=== PATIENT | female | born 1935 | race Caucasian/White ===

== ENCOUNTER 2022-01-09 10:38 | Inpatient (IN) | payer MEDICARE, OTHER ==
[2022-01-09 11:27] LABS: Hemoglobin 12.1 g/dL (12.0-15.5); Mean Corpuscular Hemoglobin 30.3 pg (27.0-33.0); RBC Distribution Width 14.6 % (11.5-14.5); White Blood Cell (WBC) Count 11.5 10x3/uL (3.5-10.5)
[2022-01-09 11:28] LABS: #Monocytes 1.5 10x3/uL (0.0-1.1); #Neutrophils 8.9 10x3/uL (1.5-8.4); %Basophils 0.3 % (0.0-2.0); %Eosinophils 0.1 % (0.0-6.0); %Lymphocytes 9.2 % (18.0-47.0); Mean Platelet Volume 10.9 fl (7.4-10.4); Platelet Count 198 10x3/uL (150-450)
[2022-01-09 11:51] LABS: ALT (SGPT) 11 U/L (8-55); AST (SGOT) 21 U/L (5-34); Albumin 3.4 g/dL (3.4-4.8); Alkaline Phosphatase 43 U/L (40-110); Anion Gap 13 mmol/L (10-20); BUN (Urea Nitrogen) 12 mg/dL (9.8-20.1); Bilirubin, Total 0.8 mg/dL (0.2-1.2); Calc. Creatinine Clearance 0 mL/min (70-130); Calcium 7.8 mg/dL (7.8-10.44); Carbon Dioxide 24 mmol/L (23-31); Chloride 96 mmol/L (98-107); Estimated GFR 92; Globulin 2.6 g/dL (2.4-3.5); Glucose 119 mg/dL (83-110); Lipase 9 U/L (8-78); Magnesium 1.9 mg/dL (1.6-2.6); Potassium 3.9 mmol/L (3.5-5.1); Sodium 129 mmol/L (136-145)
[2022-01-09 11:56] LABS: SARS-CoV-2 NAA Rapid Test Not Detected (NotDetected)
[2022-01-09] MEDS ORDERED: cefTRIAXone\\ROCEPHIN 2 GM VIAL ONE (12:25)
[2022-01-09 13:33] LABS: Bilirubin Neg (Negative); Blood, Urine 50 (Negative); Glucose, Urine (Dipstick) Normal (Negative); Ketone, Urine 50 mg/dL (Negative); Leukocyte Negative (Negative); Nitrite Negative (Negative); Protein, Urine (Dipstick) 30 mg/dl (Neg-Trace)
[2022-01-09 13:36] LABS: Clarity Clear (Clear)
[2022-01-09 13:45] LABS: Bacteria/HPF None Seen HPF (None Seen); RBC/HPF 0-3 HPF (0-3); Squamous Epithelial 0-3 HPF (0-3); WBC/HPF 0-3 HPF (0-3)
[2022-01-09] MEDS ORDERED: HYDROcodone/Acetaminophen 5/325 mg Tablet PO PRN (13:47)
[2022-01-09] MEDS ORDERED: Ondansetron PF 4 MG/2 ML Vial IVP PRN (13:47)
[2022-01-09] MEDS ORDERED: Azithromycin 500 MG VIAL ONE (13:51)
[2022-01-09 14:42] LABS: Troponin I 0.027 ng/mL (< 0.028)
[2022-01-09 17:34] LABS: Troponin I 0.028 ng/mL (< 0.028)
[2022-01-09] MEDS: NS 0.9% w/ 20 MEQ KCL 1,000 ML/1,000 ML BAG IV SCH (20:30)
[2022-01-09] MEDS: Famotidine 20 MG TAB PO SCH (20:34)
[2022-01-09] MEDS: guaiFENesin ER 600 MG TAB PO SCH (20:34)
[2022-01-09 21:25] VITALS: BMI 19.6
[2022-01-10] MEDS: Acetaminophen 325 MG TAB PO PRN (00:51)
[2022-01-10] MEDS: NS 0.9% w/ 20 MEQ KCL 1,000 ML/1,000 ML BAG IV SCH ×2 (03:04→10:23)
[2022-01-10 04:10] LABS: #Eosinphils 0.1 10x3/uL (0.0-0.5); #Monocytes 1.1 10x3/uL (0.0-1.1); #Neutrophils 6.3 10x3/uL (1.5-8.4); %Basophils 0.5 % (0.0-2.0); %Eosinophils 0.8 % (0.0-6.0); %Lymphocytes 10.5 % (18.0-47.0); %Monocytes 12.9 % (0.0-10.0); %Neutrophils 74.9 % (40.0-75.0); Hemoglobin 11.1 g/dL (12.0-15.5); Mean Corpuscular HGB CONC 34.2 g/dL (32.0-36.0); Mean Corpuscular Hemoglobin 30.2 pg (27.0-33.0); Mean Corpuscular Volume 88.6 fl (81.6-98.3); Mean Platelet Volume 11.1 fl (7.4-10.4); Platelet Count 168 10x3/uL (150-450); RBC Distribution Width 14.5 % (11.5-14.5); Red Blood Cell (RBC) Count 3.67 10x6/uL (3.90-5.03); White Blood Cell (WBC) Count 8.5 10x3/uL (3.5-10.5)
[2022-01-10 04:24] LABS: Anion Gap 11 mmol/L (10-20); BUN (Urea Nitrogen) 9 mg/dL (9.8-20.1); Calc. Creatinine Clearance 69 mL/min (70-130); Calcium 7.7 mg/dL (7.8-10.44); Carbon Dioxide 23 mmol/L (23-31); Chloride 101 mmol/L (98-107); Estimated GFR 92; Glucose 111 mg/dL (83-110); Magnesium 1.9 mg/dL (1.6-2.6); Potassium 3.9 mmol/L (3.5-5.1); Sodium 131 mmol/L (136-145)
[2022-01-10] MEDS: Famotidine 20 MG TAB PO SCH ×2 (09:45→21:03)
[2022-01-10] MEDS: guaiFENesin ER 600 MG TAB PO SCH ×2 (09:45→21:03)
[2022-01-10] MEDS ORDERED: Potassium Chloride 20 MEQ TAB PO SCH (12:30)
[2022-01-10] MEDS: cefTRIAXone\\ROCEPHIN 1 GM in Sodium Chloride 0.9% 100 ML IVPB SCH (13:17)
[2022-01-10] MEDS: Mexiletine HCl 150 MG CAP PO SCH ×2 (15:42→21:03)
[2022-01-10] MEDS: Calcium Carbonate 500 MG ChewTAB PO PRN (15:42)
[2022-01-10] MEDS: Azithromycin 500 MG in Sodium Chloride 0.9% 250 ML 250 ML IVPB SCH (15:43)
[2022-01-11 04:42] LABS: #Eosinphils 0.1 10x3/uL (0.0-0.5); #Monocytes 0.8 10x3/uL (0.0-1.1); #Neutrophils 6.5 10x3/uL (1.5-8.4); %Basophils 0.4 % (0.0-2.0); %Lymphocytes 9.6 % (18.0-47.0); %Neutrophils 77.8 % (40.0-75.0); Hemoglobin 12.1 g/dL (12.0-15.5); Mean Corpuscular Hemoglobin 30.7 pg (27.0-33.0); Mean Corpuscular Volume 87.8 fl (81.6-98.3); Mean Platelet Volume 11.4 fl (7.4-10.4); Platelet Count 182 10x3/uL (150-450); RBC Distribution Width 14.3 % (11.5-14.5); Red Blood Cell (RBC) Count 3.94 10x6/uL (3.90-5.03); White Blood Cell (WBC) Count 8.3 10x3/uL (3.5-10.5)
[2022-01-11 04:51] LABS: Anion Gap 12 mmol/L (10-20); BUN (Urea Nitrogen) 9 mg/dL (9.8-20.1); Calc. Creatinine Clearance 67 mL/min (70-130); Carbon Dioxide 22 mmol/L (23-31); Chloride 102 mmol/L (98-107); Estimated GFR 91; Glucose 113 mg/dL (83-110); Magnesium 1.8 mg/dL (1.6-2.6); Potassium 4.3 mmol/L (3.5-5.1); Sodium 132 mmol/L (136-145)
[2022-01-11] MEDS: NS 0.9% w/ 20 MEQ KCL 1,000 ML/1,000 ML BAG IV SCH (06:14)
[2022-01-11] MEDS ORDERED: Magnesium Oxide 400 MG TAB PO SCH (09:00)
[2022-01-11] MEDS: Famotidine 20 MG TAB PO SCH (10:38)
[2022-01-11] MEDS: guaiFENesin ER 600 MG TAB PO SCH (10:38)
[2022-01-11] MEDS ORDERED: Acetaminophen 325 MG TAB PO PRN (10:46)
[2022-01-11] MEDS: Acetaminophen 325 MG TAB PO PRN (11:07)
[2022-01-11] MEDS: Mexiletine HCl 150 MG CAP PO SCH ×2 (11:10→16:16)
[2022-01-11] MEDS ORDERED: Melatonin 3 MG TAB PO PRN (12:14)
[2022-01-11] MEDS: cefTRIAXone\\ROCEPHIN 1 GM in Sodium Chloride 0.9% 100 ML IVPB SCH (14:45)
[2022-01-11] MEDS ORDERED: Thyroid 60 MG TAB PO SCH (16:00)
[2022-01-11] MEDS: Azithromycin 500 MG in Sodium Chloride 0.9% 250 ML 250 ML IVPB SCH (16:15)
[2022-01-11 16:36] VITALS: BP 132/67; TEMP 97.8
[2022-01-11] MEDS: Calcium Carbonate 500 MG ChewTAB PO PRN (18:26)
[2022-01-11] MEDS ORDERED: Artificial Tear Sol 15 ML BOT EA EYE SCH (21:00)
[2022-01-11] MEDS ORDERED: Ezetimibe 10 MG TAB PO SCH (21:00)
[2022-01-12] MEDS ORDERED: Thyroid 60 MG TAB PO SCH (06:00)
[2022-01-12] MEDS ORDERED: [UNRECOGNIZED DRUG - OTHER] PO SCH (09:00)
[2022-01-12] MEDS ORDERED: Ubidecarenone 50 MG CAP PO SCH (09:00)
[2022-01-12] MEDS ORDERED: [UNRECOGNIZED DRUG - OTHER] PO SCH (09:00)
[2022-01-12] MEDS ORDERED: GLUCOSAM PO SCH (09:00)
[2022-01-12] MEDS ORDERED: D3 PO SCH (09:00)
[2022-01-12] MEDS ORDERED: Stress 600 With Zinc 1 TAB PO SCH (09:00)
[2022-01-12] MEDS ORDERED: DHA PO SCH (09:00)
[2022-01-12] MEDS ORDERED: CHONDR MSM1 PO SCH (09:00)
[2022-01-12] MEDS ORDERED: MANG PO SCH (09:00)
[2022-01-12] MEDS ORDERED: LIP PO SCH (09:00)
[2022-01-12] MEDS ORDERED: Aspirin 81 mg Enteric Coated Tablet PO SCH (09:00)
[2022-01-12] MEDS ORDERED: EPA PO SCH (09:00)
[2022-01-12] MEDS ORDERED: BIOTIN 1 MG PO SCH (09:00)
[2022-01-12] MEDS ORDERED: KRILL PO SCH (09:00)
[2022-01-12] MEDS ORDERED: Multivit, Therapeutic 1 TAB PO SCH (09:00)
[2022-01-12] MEDS ORDERED: ASTX PO SCH (09:00)
[2022-01-12] MEDS ORDERED: Ascorbic Acid 500 mg Chewable Tablet PO SCH (09:00)
[2022-01-12] MEDS ORDERED: Digoxin 0.125 MG TAB PO SCH (09:00)
[2022-01-12] MEDS ORDERED: ROSUVASTATIN CALCIUM 5 MG PO SCH (09:00)
[2022-01-12 15:13] LABS: A/G Ratio 0.9 (0.7-1.7); Albumin 2.4 g/dL (2.9-4.4); Alpha 1 0.4 g/dL (0.0-0.4); Alpha 2 0.9 g/dL (0.4-1.0); Beta 0.7 g/dL (0.7-1.3); Gamma 0.8 g/dL (0.4-1.8); Globulin, Total 2.7 g/dL (2.2-3.9); M-Spike 0.1 g/dL (Not Observed)
== END 2022-01-11 22:49 | DRG 178 ==
LOC: CSHERS 10:38 → CSHTELE 18:43
PROVIDERS: ADMIT Family Medicine; ATTEND Family Medicine
DX: J15.6 Pneumonia due to other Gram-negative bacteria (principal); I42.9 Cardiomyopathy, unspecified; R55 Syncope and collapse; I48.0 Paroxysmal atrial fibrillation; E78.5 Hyperlipidemia, unspecified; Z20.822 Contact with and (suspected) exposure to COVID-19; E03.9 Hypothyroidism, unspecified; Z96.651 Presence of right artificial knee joint; R53.1 Weakness; I25.10 Atherosclerotic heart disease of native coronary artery without angina pectoris; I08.0 Rheumatic disorders of both mitral and aortic valves; I50.9 Heart failure, unspecified; I11.0 Hypertensive heart disease with heart failure; Z98.890 Other specified postprocedural states; Z82.49 Family history of ischemic heart disease and other diseases of the circulatory system; Z91.018 Allergy to other foods; Z91.048 Other nonmedicinal substance allergy status; Z79.899 Other long term (current) drug therapy; Z95.0 Presence of cardiac pacemaker; Z79.82 Long term (current) use of aspirin; Z87.891 Personal history of nicotine dependence
CPT/HCPCS: 36415; 51701; 70450; 71045; 72170; 80048; 80053; 81003; 81015; 83605; 83690; 83735; 83880; 84155; 84165; 84443; 84484; 85025; 87040; 87086; 93005; 94760; 96374; 96375; J0456; J0696; J3480; J3490; J7050